=== PATIENT | female | born 1990 | race Two or more races ===

== ENCOUNTER 2024-11-15 14:01 | Emergency (ER) | payer SELFPAY ==
[2024-11-15 14:11] VITALS: BP 116/82; RESP 20; TEMP 98; BMI 22.8
[2024-11-15 16:02] VITALS: PULSE 71
== END 2024-11-15 15:55 | disposition left against medical advice (07) ==
LOC: JER 14:01
DX: F10.920 Alcohol use, unspecified with intoxication, uncomplicated (principal); Y90.9 Presence of alcohol in blood, level not specified
CPT/HCPCS: 99283-25